=== PATIENT | female | born 1945 | race Caucasian/White ===

== ENCOUNTER 2021-05-27 11:54 | Emergency (ER) | payer MEDICARE ==
[~2021-05-27] VITALS: Ht 167.6 cm; Wt 50.8 kg
[2021-05-27 12:17] LABS: BASO % 0 % (0-3); EOS % 0 % (0-3); HEMATOCRIT 30.7 % (36.0-47.0); HEMOGLOBIN 10.4 g/dL (12.0-15.5); LYMPH # 0.3 x10^3/uL (1.0-4.8); LYMPH % 2 % (24-48); MEAN CORPUSCULAR HEMOGLOBIN 30 pg (25-35); MEAN CORPUSCULAR HGB CONC 34 g/dL (31-37); MEAN CORPUSCULAR VOLUME 89 fL (79-100); MONO # 0.8 x10^3/uL (0.0-1.1); MONO % 6 % (0-9); NEUT % 92 % (31-73); PLATELET COUNT 256 x10^3/uL (140-400); RED BLOOD COUNT 3.45 x10^6/uL (3.50-5.40); RED CELL DISTRIBUTION WIDTH 12.5 % (11.5-14.5); WHITE BLOOD COUNT 14.2 x10^3/uL (4.0-11.0)
--- NOTE | 2021-05-27 12:22 | RAD ---
CT STROKE HEAD W/O Date: 05/27/2021 11:59 AM Clinical Indication: AMS Comparison: None. Technique: 5 mm axial tomographic images were obtained of the head without contrast. These were view ed on brain and bone windows. One or more of the following dose reduction techniques were utilized: A utomated exposure control (AEC), Adjustment of mA and/or kV according to patient size, Use of iterati ve reconstruction technique such as ASiR, CT scan done according to ALARA and image gently/image puente ly Findings: Large right frontoparietal intraparenchymal hemorrhage measuring 8.0 x 3.8 x 5.3 cm (AP by TV by CC) (approximately 80 mL). Intraventricular extension of blood products, noted within the lateral, third, and fourth ventricles. Mass effect on surrounding structures with 3 mm right to left midline shift. Patent basilar cisterns. Acute subdural hemorrhage along the left temporal convexity and left tentorial leaflet measuring up t o 4 mm in thickness. Mild acute subarachnoid blood scattered within the sulci of both hemispheres Mild generalized cerebral and cerebellar volume loss. Mild nonspecific periventricular hypoattenuatio n, most commonly seen with chronic small vessel ischemic disease. Calcified atherosclerosis of the bi lateral cavernous and paraclinoid internal carotid arteries and intracranial vertebral arteries. Right maxillary sinus air hemorrhage level. Right scalp laceration, swelling, and hematoma. The visua lized portions of the orbits and globes are normal. The mastoid air cells are clear. The conference translator topogram shows no lytic lesion or fracture. Impression: 1. Large right frontoparietal intraparenchymal hemorrhage measuring up to 8.0 cm (approximately 80 mL ). Mass effect with 3 mm right to left midline shift. Intraventricular extension of blood, with no ev idence of hydrocephalus. Patent basilar cisterns. 2. Small acute subdural hematoma on the left measuring up to 4 mm in thickness. Mild scattered subara chnoid blood within the sulci of both cerebral hemispheres. FOR INTERNAL CODING PURPOSES Critical result: Findings discussed with SENTHIL SMALL MD at 05/27/2021 12:11 PM. RESULT CODE: (C) Electronically signed by: Ector Easton MD (05/27/2021 12:20 PM) [id number]
[2021-05-27 12:27] LABS: PROTHROMBIN TIME PATIENT 13.4 SEC (11.7-14.0)
[2021-05-27 12:30] LABS: CALCIUM 10.1 mg/dL (8.5-10.1); CREATININE 0.9 mg/dL (0.6-1.0); GFR 60.7; POTASSIUM 3.3 mmol/L (3.5-5.1)
[2021-05-27 12:44] LABS: ALBUMIN 4.2 g/dL (3.4-5.0); ALBUMIN/GLOBULIN RATIO 1.2 (1.0-1.7); MAGNESIUM 0.9 mg/dL (1.8-2.4); TOTAL BILIRUBIN 0.9 mg/dL (0.2-1.0); TOTAL PROTEIN 7.6 g/dL (6.4-8.2)
--- NOTE | 2021-05-27 12:48 | PHYS DOC ---
Past Medical History Additional Past Medical Histor: unknown Past Surgical History: Other Additional Past Surgical Histo: unknown Adult General Chief Complaint Chief Complaint: NEURO SYMPTOMS/DEFICITS HPI HPI Patient is a 76 year old female with history of falling at home 2 days ago. The patient has a bruise in the left side of her forehead and is fairly unresponsive and certainly not able to provide us with any further history. The medications the patient takes are unknown and the patient's past medical history is unknown. Review of Systems Review of Systems Review of systems unable to obtain secondary to patient's altered mental state Physical Exam Physical Exam Constitutional: Well developed, frail appearing, non-toxic appearance. HENT: 6 to 7 cm bruise on the left side of the forehead Eyes: EOMI, conjunctiva normal, no discharge. Neck: No palpable deformity, trachea midline, no obvious masses Cardiovascular: Regular rate and rhythm Lungs & Thorax: Bilateral breath sounds clear to auscultation Abdomen: Soft, no obvious masses Skin: Warm, dry, Extremities: No tenderness, no cyanosis, no clubbing, no edema. Neurologic: Patient is obtunded and unresponsive to verbal stimuli Psychologic: Patient unresponsive Current Patient Data Vital Signs Vital Signs Date Time Temp Pulse Resp B/P (MAP) Pulse Ox O2 Delivery O2 Flow Rate FiO2 05/27/21 11:54 99.4 66 24 138/70 (92) 98 Room Air 99.4 Lab Values Laboratory Tests Test 05/27/21 11:00 05/27/21 12:10 White Blood Count 14.2 x10^3/uL (4.0-11.0) H Red Blood Count 3.45 x10^6/uL (3.50-5.40) L Hemoglobin 10.4 g/dL (12.0-15.5) L Hematocrit 30.7 % (36.0-47.0) L Mean Corpuscular Volume 89 fL (79-100) Mean Corpuscular Hemoglobin 30 pg (25-35) Mean Corpuscular Hemoglobin Concent 34 g/dL (31-37) Red Cell Distribution Width 12.5 % (11.5-14.5) Platelet Count 256 x10^3/uL (140-400) Neutrophils (%) (Auto) 92 % (31-73) H Lymphocytes (%) (Auto) 2 % (24-48) L Monocytes (%) (Auto) 6 % (0-9) Eosinophils (%) (Auto) 0 % (0-3) Basophils (%) (Auto) 0 % (0-3) Neutrophils # (Auto) 13.0 x10^3/uL (1.8-7.7) H Lymphocytes # (Auto) 0.3 x10^3/uL (1.0-4.8) L Monocytes # (Auto) 0.8 x10^3/uL (0.0-1.1) Eosinophils # (Auto) 0.0 x10^3/uL (0.0-0.7) Basophils # (Auto) 0.0 x10^3/uL (0.0-0.2) Platelet Estimate Pending Prothrombin Time 13.4 SEC (11.7-14.0) Prothrombin Time INR 1.1 (0.8-1.1) Activated Partial Thromboplast Time 29 SEC (24-38) Sodium Level 134 mmol/L (136-145) L Potassium Level 3.3 mmol/L (3.5-5.1) L Chloride Level 93 mmol/L (98-107) L Carbon Dioxide Level 28 mmol/L (21-32) Anion Gap 13 (6-14) Blood Urea Nitrogen 22 mg/dL (7-20) H Creatinine 0.9 mg/dL (0.6-1.0) Estimated GFR (Cockcroft-Gault) 60.7 BUN/Creatinine Ratio 24 (6-20) H Glucose Level 142 mg/dL (70-99) H Lactic Acid Level 1.1 mmol/L (0.4-2.0) Calcium Level 10.1 mg/dL (8.5-10.1) Magnesium Level Pending Total Bilirubin Pending Aspartate Amino Transferase (AST) Pending Alanine Aminotransferase (ALT) Pending Alkaline Phosphatase Pending Troponin I High Sensitivity 81 ng/L (4-50) H Total Protein Pending Albumin Pending Albumin/Globulin Ratio Pending Lipase Pending Ethyl Alcohol Level < 10 mg/dL (0-10) Glucose (Fingerstick) 145 mg/dL (70-99) H Laboratory Tests 05/27/21 11:00 Laboratory Tests 05/27/21 11:00 EKG EKG [] Interpretation Time: Twelve-lead EKG shows a sinus rhythm with a rate of 72. NH, QRS and QT corrected are within normal limits. No ST segment elevation or depression. Radiology/Procedures Radiology/Procedures [] Impressions: PATIENT: FRIDA HARRIS LACCOUNT: [id number]#: [id number] : 1945 LOCATION: ER AGE: 76 SEX: F EXAM STATUS: REG ER ORD. PHYSICIAN: SENTHIL SMALL MD REASON: AMS PROCEDURE: CT CODE STROKE HEAD WO CT STROKE HEAD W/O Date: 05/27/2021 11:59 AM Clinical Indication: AMS Comparison: None. Technique: 5 mm axial tomographic images were obtained of the head without contrast. These were viewed on brain and bone windows. One or more of the following dose reduction techniques were utilized: Automated exposure control (AEC), Adjustment of mA and/or kV according to patient size, Use of iterative r econstruction technique such as ASiR, CT scan done according to ALARA and image gently/image wisely Findings: Large right frontoparietal intraparenchymal hemorrhage measuring 8.0 x 3.8 x 5.3 cm (AP by TV by CC) (approximately 80 mL). Intraventricular extension of blood products, noted within the lateral, third, and fourth ventricles. Mass effect on surrounding structures with 3 mm right to left midline shift. Patent basilar cisterns. Acute subdural hemorrhage along the left temporal convexity and left tentorial leaflet measuring up to 4 mm in thickness. Mild acute subarachnoid blood scatter ed within the sulci of both hemispheres Mild generalized cerebral and cerebellar volume loss. Mild nonspecific periventricular hypoattenuation, most commonly seen with chronic small vessel ischemic disease. Calcified atherosclerosis of the bilateral cavernous and paraclinoid internal carotid arteries and intracranial vertebral arteries. Right maxillary sinus air hemorrhage level. Right scalp laceration, swelling, and hematoma. The visualized portions of the orbits and globes are normal. The mastoid air cells are clear. The [employer] topogram shows no lytic lesion or fracture. Impression: 1. Large right frontoparietal intraparenchymal hemorrhage measuring up to 8.0 cm (approximately 80 mL). Mass effect with 3 mm right to left midline shift. Intraventricular extension of blood, with no evidence of hydrocephalus. Patent basilar cisterns. 2. Small acute subdural hematoma on the left measuring up to 4 mm in thickness. Mild scattered subarachnoid blood within the sulci of both cerebral hemispheres. FOR INTERNAL CODING PURPOSES Critical result: Findings discussed with SENTHIL SMALL MD at 05/27/2021 12:11 PM. RESULT CODE: (C) Electronically signed by: Oscar Easton MD (05/27/2021 12:20 PM) [id number] DICTATED and SIGNED BY: OSCAR EASTON MD DATE: 05/27/21 120 Course & Med Decision Making Course & Med Decision Making Pertinent Labs and Imaging studies reviewed. (See chart for details) [] Is a 76-year-old female who sustained a fall at home. Estimated time was [address] of the head demonstrates an intraparenchymal bleed on the right which extends into the ventricle on that side as well. Labs are pending. Patient be transferred to , accepting physician is Dr. Galindo. Condition at this time is guarded. Dragon Disclaimer Dragon Disclaimer This electronic medical record was generated, in whole or in part, using a voice recognition dictation system. Departure Departure Impression: Primary Impression: Intraparenchymal hemorrhage of brain Disposition: [facility] Condition: GUARDED Referrals: DARY GRAHAM (PCP) SENTHLI SMALL MD May 27, 2021 12:48
[2021-05-27 12:53] LABS: % BASOS 1 % (0-3); % EOS 6 % (0-5); % LYMPHS 39 % (24-48); % MONOS 1 % (0-10); % SEGS 53 % (35-66); PLT ESTIMATE ADEQUATE (ADEQUATE)
[2021-05-27 13:09] VITALS: BP 143/66
[2021-05-27 13:14] LABS: BARBITURATES NEG (NEG); BENZODIAZEPINES NEG (NEG); CANNABINOIDS NEG (NEG); COCAINE NEG (NEG); METHADONE NEG (NEG); OPIATES NEG (NEG); PHENCYCLIDINE NEG (NEG)
[2021-05-27 13:16] LABS: INFLUENZA A PATIENT NEGATIVE (NEGATIVE); INFLUENZA B PATIENT NEGATIVE (NEGATIVE)
[2021-05-27 13:20] LABS: AMPHETAMINE/METHAMPHETAMINE NEG (NEG)
--- NOTE | 2021-05-28 06:05 | EKG ---
[facility] [address] [place] [address] Test Date: 2021-05-27 Test Time: 12:27:39 Pat Name: FRIDA HARRIS Department: Room: Gender: F Paper Making Machine Operator: : 1945 Requested By: SENTHIL SMALL Order Number: [id number] Reading MD: Luis Street MD Measurements Intervals [place] Rate: 72 P: 58 ND: 148 QRS: -25 QRSD: 92 T: 121 QT: 432 QTc: 475 Interpretive Statements SINUS RHYTHM Nonspecific ST-T wave changes Consider LVH Electronically Signed On 05-30-2021 17:58:[address] MD
== END 2021-05-27 13:16 | disposition short-term general hospital (02) ==
LOC: ER 11:54
DX: S00.83XA Contusion of other part of head, initial encounter (principal); I61.8 Other nontraumatic intracerebral hemorrhage; Z20.822 Contact with and (suspected) exposure to COVID-19; R41.82 Altered mental status, unspecified; W18.39XA Other fall on same level, initial encounter; Y93.89 Activity, other specified; Y92.89 Other specified places as the place of occurrence of the external cause; Y99.8 Other external cause status
CPT/HCPCS: 36415; 70450; 80053; 80307; 82962; 83605; 83690; 83735; 84484; 85007; 85025; 85610; 85730; 87428; 93005; 99285; G0480; 99284